=== PATIENT | male | born 1985 | race Caucasian/White ===

== ENCOUNTER 2017-06-22 10:12 | Emergency (ER) | payer BC, MEDICAID ==
[~2017-06-22] VITALS: Ht 180.3 cm; Wt 97.5 kg
[2017-06-22 10:54] LABS: Urine Bacteria NONE SEEN /hpf (None Seen); Urine Blood Negative /uL (Negative); Urine WBC 1 /hpf (0 - 3)
[2017-06-22 15:04] VITALS: BP 105/64
== END 2017-06-22 15:04 | disposition home or self-care (01) ==
LOC: ER 10:18
DX: N20.0 Calculus of kidney (principal)
CPT/HCPCS: 81001

== ENCOUNTER 2019-11-14 11:37 | Emergency (ER) | payer MEDICAID ==
[~2019-11-14] VITALS: Ht 180.3 cm; Wt 95.3 kg
[2019-11-14 11:42] VITALS: BP 134/89
[2019-11-14] MEDS ORDERED: MAGNESIUM CITRATE SOLUTION 300 ML BTL PO ONE (13:15)
== END 2019-11-14 13:24 | disposition home or self-care (01) ==
LOC: ER 11:37
DX: K59.00 Constipation, unspecified (principal)
CPT/HCPCS: 74018

== ENCOUNTER 2020-11-19 09:04 | Emergency (ER) | payer SELFPAY ==
[~2020-11-19] VITALS: Ht 182.9 cm; Wt 97.5 kg
[2020-11-19 09:31] VITALS: BP 142/92
[2020-11-19] MEDS ORDERED: KETOROLAC TROMETH 60MG/2ML VIAL IM ONE (09:45)
== END 2020-11-19 10:23 | disposition home or self-care (01) ==
LOC: ER 09:04
DX: S39.012A Strain of muscle, fascia and tendon of lower back, initial encounter (principal); X58.XXXA Exposure to other specified factors, initial encounter; Y93.89 Activity, other specified; Y92.89 Other specified places as the place of occurrence of the external cause; Y99.8 Other external cause status
CPT/HCPCS: 72100; 96372; 99283; J1885

== ENCOUNTER 2020-12-19 11:07 | Emergency (ER) | payer MEDICAID ==
[~2020-12-19] VITALS: Ht 182.9 cm; Wt 93.0 kg
[2020-12-19 12:18] VITALS: BP 139/87
[2020-12-19] MEDS ORDERED: KETOROLAC TROMETH 60MG/2ML VIAL IM ONE (12:30)
== END 2020-12-19 12:52 | disposition home or self-care (01) ==
LOC: ER 11:07
DX: M54.51 Vertebrogenic low back pain (principal); F12.10 Cannabis abuse, uncomplicated; F17.210 Nicotine dependence, cigarettes, uncomplicated
CPT/HCPCS: 96372; 99283; J1885